=== PATIENT | male | born 1940 | race Caucasian/White ===

== ENCOUNTER 2017-09-11 09:40 | Emergency (ER) | payer OTHER, MEDICARE ==
[2017-09-11 10:06] VITALS: TEMP 98.1
[2017-09-11] MEDS ORDERED: IPRATROPIUM/ALBUTEROL 3 ML DEYVIAL IH ONE (10:14)
[2017-09-11] MEDS ORDERED: methylPREDNISolone SOD SUCC 125 MG/2 ML VIAL IVP ONE (10:14)
--- NOTE | 2017-09-11 10:37 | CPEKG ---
Heart Rate: 62 RR Interval: 968 P-R Interval: 124 QRSD Interval: 96 QT Interval: 428 QTC Interval: 435 P [place]: 76 QRS [place]: 63 T Wave [place]: 20 EKG Severity - NORMAL ECG - EKG Impression: SINUS RHYTHM Electronically Signed By: Lucius Ward 11-Sep-2017 11:36:06
[2017-09-11 11:07] LABS: PLATELET COUNT 213 10^3/uL (150-400)
--- NOTE | 2017-09-11 11:31 | EDPHY ---
H & P Stated Complaint: cough and cold x 1 week and low o2 yesterday Time Seen by Provider: 09/11/17 10:12 HPI/ROS: This patient complains of dyspnea. He explains that he has COPD followed by Dr. Rees and has had cold symptoms consisting of nasal congestion and dry cough occasionally productive of sputum for 5 days. He travel to [facility] with family yesterday and noticed increased dyspnea particularly with any exertion. He has a O2 sat monitor and noted his oxygen was low at 78% on room air. On his CPAP machine at increased 85-90% but he awakened at 3:00 a.m. concerned about his ongoing dyspnea and decided to drive back down to lower altitude and come in to the emergency department for further evaluation. He reports having mild dyspnea now at a lower altitude. He reports his baseline O2 sats typically 93% on room air or so. ROS: No high fevers or chills. No other constitutional symptoms. HEENT: Nasal congestion but no sinus pain. He reports no sore throat at this time. Pulmonary: No hemoptysis. No pleuritic pain. No respiratory distress. Cardiovascular: No chest pain or heart palpitations. No lightheadedness. No lower extremity swelling GI: No complaints : No complaints Endocrine: No complaints Integumentary: No complaints Complete review of symptoms is otherwise negative. Source: Patient Exam Limitations: No limitations - Personal History Current Tetanus Diphtheria and Acellular Pertussis (TDAP): Yes - Medical/Surgical History PMH: COPD Hx Asthma: Yes Hx Chronic Respiratory Disease: Yes Hx Diabetes: No Hx Cardiac Disease: No Hx Renal Disease: No Hx Cirrhosis: No Hx Alcoholism: No Hx HIV/AIDS: No Hx Splenectomy or Spleen Trauma: No Other PMH: Cholecystecomy/COPD. Schiotsky's ring/gerd. cyst removed from area of the sternum. torn acl. Cpap no o2 - Social History Smoking Status: Former smoker Alcohol Use: Occasionally Drug Use: None - Physical Exam Exam: Vital signs normal exception of an O2 sat on room air of 92% and mild hypertension initially 145/82 General Appearance: Alert, no distress. Eyes: Pupils equal and round no pallor or injection. ENT, Mouth: Mucous membranes moist. Respiratory: Minimal expiratory wheeze with occasional dry cough. No rales or rhonchi appreciated. Cardiovascular: Regular rate and rhythm. No murmur gallop or rub. No JVD. No peripheral edema or calf tenderness Gastrointestinal: Abdomen is soft and nontender, no masses, bowel sounds normal. Neurological: GCS 15. Skin: Warm and dry, no rashes. Musculoskeletal: Neck is supple nontender. Extremities are symmetrical, full range of motion. Psychiatric: Mood and affect are normal DIFFERENTIAL DIAGNOSIS: After history and physical exam differential diagnosis was considered for COPD exacerbation, viral URI with cough, myocardial ischemic disease, pneumonia Constitutional: Initial Vital Signs Temperature (C) 36.7 C 09/11/17 10:02 Heart Rate 73 09/11/17 10:02 Respiratory Rate 20 09/11/17 10:02 Blood Pressure 145/82 H 09/11/17 10:02 O2 Sat (%) 92 09/11/17 10:02 O2 Delivery Mode Room Air Allergies/Adverse Reactions: No Known Allergies Allergy (Unverified 09/11/17 10:07) Home Medications: Medication Instructions Recorded Singulair 08/27/14 Omeprazole 02/09/15 Advair 500/50 (*) 09/14/16 Albuterol Hfa Anes Only [Proair 2 puffs IH Q4 PRN #1 mdi 09/11/17 Hfa Icu (*)] Azithromycin [Zithromax] 250 mg PO DAILY #6 tab 09/11/17 Montelukast Sodium 09/11/17 predniSONE 40 mg PO DAILY #10 tab 09/11/17 Medical Decision Making - Diagnostics EKG Interpretation: 12 lead EKG performed at 10:36 a.m. indication dyspnea and rule out DE Sinus rhythm at 62 Intervals: Normal throughout [place]: Normal throughout ST segments: Normal throughout Overall assessment: Normal EKG Imaging Results: Imaging Impressions Chest X-Ray 09/11/17 10:00 Impression: 1. Chronic COPD without pneumonia or CHF. 2. Hiatal hernia. If the patient's symptoms could be related to reflux, then an upper GI might be useful. Two-view chest x-ray: Mild airway disease with prominent cardiac fat pad. No significant change from prior chest x-ray by my interpretation Imaging: I viewed and interpreted images myself ED Course/Re-evaluation: DuoNeb with increased aeration decreased wheeze and reduced cough Solu-Medrol 125 IV Discussion: This patient presents with dyspnea attributable to mild COPD exacerbation combined with higher altitude. I counseled regarding this advised that he stay lower altitude for at least a couple days. After workup, no evidence of DE, pneumonia or other concerning findings. Will treat him with Zithromax antibiotic, prednisone burst and continue his inhalers. - Data Points Laboratory Results: Laboratory Results 09/11/17 10:50 09/11/17 10:50 09/11/17 09/11/17 10:50 10:50 WBC 7.51 10^3/uL 10^3/uL (3.80-9.50) RBC 4.81 10^6/uL 10^6/uL (4.40-6.38) Hgb 14.5 g/dL g/dL (13.7-17.5) Hct 43.1 % % (40.0-51.0) MCV 89.6 fL fL (81.5-99.8) MCH 30.1 pg pg (27.9-34.1) MCHC 33.6 g/dL g/dL (32.4-36.7) RDW 12.8 % % (11.5-15.2) Plt Count 213 10^3/uL 10^3/uL (150-400) MPV 10.5 fL fL (8.7-11.7) Neut % (Auto) 67.3 % % (39.3-74.2) Lymph % (Auto) 21.8 % % (15.0-45.0) [place] % (Auto) 9.9 % % (4.5-13.0) Eos % (Auto) 0.3 % L % (0.6-7.6) Baso % (Auto) 0.3 % % (0.3-1.7) Nucleat RBC Rel Count 0.0 % % (0.0-0.2) Absolute Neuts (auto) 5.06 10^3/uL 10^3/uL (1.70-6.50) Absolute Lymphs (auto) 1.64 10^3/uL 10^3/uL (1.00-3.00) Absolute Monos (auto) 0.74 10^3/uL 10^3/uL (0.30-0.80) Absolute Eos (auto) 0.02 10^3/uL L 10^3/uL (0.03-0.40) Absolute Basos (auto) 0.02 10^3/uL 10^3/uL (0.02-0.10) Absolute Nucleated RBC 0.00 10^3/uL 10^3/uL (0-0.01) Immature Gran % 0.4 % % (0.0-1.1) Immature Gran # 0.03 10^3/uL 10^3/uL (0.00-0.10) Sodium 144 mEq/L mEq/L (134-144) Potassium 4.2 mEq/L mEq/L (3.5-5.2) Chloride 104 mEq/L mEq/L (97-110) Carbon Dioxide 27 mEq/l mEq/l (22-31) Anion Gap 13 mEq/L mEq/L (8-16) BUN 17 mg/dL mg/dL (7-23) Creatinine 0.7 mg/dL mg/dL (0.7-1.3) Estimated GFR > 60 Glucose 130 mg/dL H mg/dL (70-100) Calcium 9.0 mg/dL mg/dL (8.5-10.4) Medications Given: Discontinued Medications Albuterol/Ipratropium (Duoneb) 3 ml IH EDNOW ONE Stop: 09/11/17 10:15 Last Admin: 09/11/17 11:10 Dose: 3 ml Methylprednisolone Sodium Succinate (Solu-Medrol) 125 mg IVP EDNOW ONE Stop: 09/11/17 10:15 Last Admin: 09/11/17 11:05 Dose: 125 mg Departure - Departure Disposition: Home, Routine, Self-Care Clinical Impression: COPD exacerbation Condition: Good Instructions: COPD (Chronic Obstructive Pulmonary Disease) (ED) Additional Instructions: Diagnosis: COPD exacerbation Plan: Humidifier Albuterol inhaler and continue your Advair inhaler Prednisone for the next 5 days-take this in the morning starting tomorrow. Zithromax antibiotic Recommend staying here at lower altitude for at least 2 days. Return to the emergency department for any significant worsening despite the treatment plan Follow up with Dr. Rees for any ongoing symptoms Referrals: Tiffany Tripathi MD [Primary Care Provider] - As per Instructions
[2017-09-11 12:00] VITALS: BP 128/67; PULSE 64; RESP 16; O2SAT 91
== END 2017-09-11 11:50 | disposition home or self-care (01) ==
LOC: CED 09:40
DX: J44.1 Chronic obstructive pulmonary disease with (acute) exacerbation (principal); Z87.891 Personal history of nicotine dependence
CPT/HCPCS: 71020; 93005; 96374; 99285; J2930; 80048-PO; 85025-PO

== ENCOUNTER → 2018-08-18 | Outpatient (CLI) | payer OTHER, MEDICARE | LOC: BHFA 14:45 | PROVIDERS: ATTEND Internal Medicine Cardiovascular Disease | DX: R01.1 Cardiac murmur, unspecified (principal) ==